=== PATIENT | male | born 1940 | race Caucasian/White ===

== ENCOUNTER → 2024-08-06 08:04 | Outpatient (REF) | payer OTHER, SELFPAY | LOC: RAD 08:04 | PROVIDERS: ATTENDING PHYSICIAN Family Medicine | DX: C49.3 Malignant neoplasm of connective and soft tissue of thorax (principal); Z85.46 Personal history of malignant neoplasm of prostate; R50.9 Fever, unspecified | CPT/HCPCS: 71260; 74177; Q9967 ==